=== PATIENT | male | born 1965 | race Caucasian/White ===

== ENCOUNTER → 2022-10-17 14:40 | Outpatient (CLI) | payer OTHER, SELFPAY ==
--- NOTE | ~2022-10-17 | XR_ITS ---
XR hand RT min 3V DATE: 10/17/2022 15:10 INDICATION: Third digit pain for one year. No injury. TECHNIQUE: 3 views of right hand COMPARISON: None FINDINGS: Benign small cyst of the hamate bone. There is mild osteoarthritis at the metacarpophalangeal joints, most prominent at the third metacarpo phalangeal joint. No fracture or dislocation, periosteal reaction or bone destruction. No erosive change or chondrocalc inosis. 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 UP PERSON
--- NOTE | ~2022-10-17 | XR_ITS ---
XR chest 2V DATE: 10/17/2022 15:10 INDICATION: Cough. Abnormal chest sounds. TECHNIQUE: 2 views COMPARISON: None FINDINGS: Borderline heart size. No hilar or mediastinal enlargement. Mild aortic unfolding. No pulmonary infiltrate or consolidation, pleural effusion or pulmonary vascular congestion or pneumo thorax. Included skeletal structures are unremarkable. IMPRESSION: No active pulmonary disease Reviewed, dictated and finalized at location B. [employer] SERV[employer] OFFICER IMPRESSION: No active pulmonary disease
== END ==
PROVIDERS: PCP Family Medicine; Visit Provider Family Medicine
DX: M79.641 Pain in right hand (principal); R05.9 Cough, unspecified; M19.041 Primary osteoarthritis, right hand
CPT/HCPCS: 71046; 73130